=== PATIENT | female | born 1995 | race Caucasian/White ===

== ENCOUNTER 2018-06-20 10:31 | Inpatient (IN) | payer OTHER ==
[2018-06-20 12:18] LABS: ADD UMIC YES; UR AMORPHOUS CRYSTAL FEW /HPF (NONE SEEN); UR ASCORBIC ACID NEGATIVE (NEGATIVE); UR BACTERIA FEW /HPF (NONE SEEN); UR BILIRUBIN (Dip) NEGATIVE (NEGATIVE); UR BLOOD (Dip) NEGATIVE (NEGATIVE); UR CALCIUM OXALATE CRYSTAL MANY /HPF (NONE SEEN); UR CLARITY CLOUDY (CLEAR); UR COLOR YELLOW (YELLOW); UR GLUCOSE (Dip) NEGATIVE (NEGATIVE); UR KETONES (Dip) NEGATIVE (NEGATIVE); UR LEUKOCYTE ESTERASE (Dip) 1+ Leu/ul (NEGATIVE); UR MUCUS MODERATE /HPF (NONE SEEN); UR NITRITE (Dip) NEGATIVE (NEGATIVE); UR RBC 2 /HPF (0-5); UR SPECIFIC GRAVITY (Dip) 1.025 (1.003-1.030); UR SQUAMOUS EPITHELIAL CELL FEW /HPF (FEW); UR TOTAL PROTEIN (Dip) NEGATIVE (NEGATIVE); UR UROBILINOGEN (Dip) NEGATIVE (NEGATIVE); UR WBC 21 /HPF (0-5)
[2018-06-20] MEDS: BETAMET NA PHOS/AC(6 MG/ML) 2 ML INJ SYG IM (14:01)
[2018-06-20] MEDS ORDERED: ACETAMINOPHEN 325 MG TAB PO (15:00)
[2018-06-20] MEDS: LACTATED RINGER'S 1,000 ML IV (15:10)
[2018-06-20] MEDS: MAGNESIUM SULFATE 4 GM/100 ML 100 ML IVPB (15:12)
[2018-06-20] MEDS: MAGNESIUM SULFATE 20 GM/500 ML 500 ML IV (16:07)
[2018-06-20 16:34] LABS: ADD MAN DIFF? NO
[2018-06-20 16:37] LABS: WHITE BLOOD COUNT 11.2 10^3/ul (4.8-10.8)
[2018-06-20 16:37] LABS: BASOPHILS % 0.4 % (0.0-2.0); EOSINOPHILS # 0.1 10^3/ul (0.0-0.5); EOSINOPHILS % 0.7 % (0.0-7.0); HEMATOCRIT 35.9 % (37.0-47.0); HEMOGLOBIN 11.6 g/dl (12.0-16.0); LYMPHOCYTES # 2.1 10^3/ul (0.8-2.9); LYMPHOCYTES % 18.3 % (15.0-51.0); MEAN CORPUSCULAR HEMOGLOBIN 28.9 pg (29.0-33.0); MEAN CORPUSCULAR HGB CONC 32.3 g/dl (32.0-37.0); MEAN CORPUSCULAR VOLUME 89.3 fl (82.0-101.0); MEAN PLATELET VOLUME 11.1 fl (7.4-10.4); MONOCYTE # 0.8 10^3/ul (0.3-0.9); MONOCYTES % 6.7 % (0.0-11.0); NEUTROPHIL # 8.2 10^3/ul (1.6-7.5); PLATELET COUNT 253 10^3/UL (140-415); RED BLOOD COUNT 4.02 10^6/ul (4.20-5.40); RED CELL DISTRIBUTION WIDTH 13.7 % (11.5-14.5)
[2018-06-20 16:43] LABS: ALANINE AMINOTRANSFERASE 18 IU/L (13-69); ALBUMIN 3.8 g/dl (3.3-4.9); ALBUMIN/GLOBULIN RATIO 1.11; ALKALINE PHOSPHATASE 79 IU/L (42-121); ANION GAP 11 (5-13); ASPARTATE AMINO TRANSFERASE 19 IU/L (15-46); BILIRUBIN,INDIRECT 0.2 mg/dl (0-1.1); BILIRUBIN,TOTAL 0.2 mg/dl (0.2-1.3); BLOOD UREA NITROGEN 3 mg/dl (7-20); CALCIUM 9.3 mg/dl (8.4-10.2); CARBON DIOXIDE 23 mmol/L (21-31); CHLORIDE 109 mmol/L (97-110); CREATININE 0.37 mg/dl (0.44-1.00); Estimated GFR > 60 mL/min (>60); GLUCOSE 79 mg/dl (70-220); SODIUM 143 mmol/L (135-144); TOTAL PROTEIN 7.2 g/dl (6.1-8.1)
[2018-06-21] MEDS: LACTATED RINGER'S 1,000 ML IV ×2 (01:27→15:22)
[2018-06-21 01:29] LABS: MAGNESIUM 4.3 mg/dl (1.7-2.5)
[2018-06-21] MEDS: MAGNESIUM SULFATE 20 GM/500 ML 500 ML IV ×3 (02:06→22:45)
[2018-06-21 06:54] LABS: MAGNESIUM 4.5 mg/dl (1.7-2.5)
[2018-06-21] MEDS: PRENATAL VITAMIN PO (08:43)
[2018-06-21] MEDS: FERROUS SULFATE (EC) 325 MG TAB PO (08:43)
[2018-06-21] MEDS: CEFAZOLIN 2 GM/50 ML (PMX) 50 ML IVPB (10:54)
[2018-06-21 12:41] LABS: MAGNESIUM 4.3 mg/dl (1.7-2.5)
[2018-06-21] MEDS: ONDANSETRON 4 MG INJ IV (13:16)
[2018-06-21] MEDS: BETAMET NA PHOS/AC(6 MG/ML) 2 ML INJ SYG IM (14:17)
[2018-06-21 19:27] LABS: MAGNESIUM 4.4 mg/dl (1.7-2.5)
[2018-06-22 01:23] LABS: MAGNESIUM 4.3 mg/dl (1.7-2.5)
[2018-06-22] MEDS: LACTATED RINGER'S 1,000 ML IV (04:04)
[2018-06-22 07:11] LABS: MAGNESIUM 4.3 mg/dl (1.7-2.5)
[2018-06-22] MEDS: PRENATAL VITAMIN PO (09:02)
[2018-06-22] MEDS: FERROUS SULFATE (EC) 325 MG TAB PO (09:02)
[2018-06-22] MEDS: MAGNESIUM SULFATE 20 GM/500 ML 500 ML IV (10:03)
== END 2018-06-22 11:50 | disposition home or self-care (01) | DRG 833 ==
LOC: OBT 10:31 → PP1 06-22 09:48 → L-D 10:31 → OBT 14:17 → L-D 14:05
PROVIDERS: Obstetrics & Gynecology
DX: O60.03 Preterm labor without delivery, third trimester (principal); Z3A.29 29 weeks gestation of pregnancy
CPT/HCPCS: 76815; 76817; 76818; 80053; 81001; 82731; 83735; 85025; 87086